=== PATIENT | male | born 1965 | race American Indian/Alaskan Native ===

== ENCOUNTER 2016-09-16 09:40 | Outpatient (CLI) | payer SELFPAY ==
--- NOTE | 2016-09-17 07:57 | Magnetic Resonance Report ---
MRI RIGHT SHOULDER WITHOUT CONTRAST: 09/16/16 CLINICAL: Right shoulder pain. TECHNIQUE: Coronal T1, coronal T2, coronal proton density fat saturation, sagittal proton density fat saturation and axial gradient echo T* sequences on a 1.5 Xochitl magnet. FINDINGS: A type II acromion and severe acromioclavicular joint arthritis with subchondral cysts, distal clavicular hypertrophy and a soft tissue mass at the joint. Widening of the joint space suggests a chronic acromioclavicular joint separation. Mild impingement of the supraspinatus tendon. The rotator cuff is otherwise intact. Intact glenoid labrum and long head of the biceps tendon. No joint effusion. IMPRESSION: Severe acromioclavicular joint arthritis producing mild impingement of the rotator cuff. No rotator cuff tear.
== END 2016-09-16 09:41 | disposition home or self-care (01) ==
LOC: MRI 09:40
PROVIDERS: ATTEND Physical Medicine & Rehabilitation
DX: M13.811 Other specified arthritis, right shoulder (principal); M25.811 Other specified joint disorders, right shoulder

== ENCOUNTER 2017-02-28 07:17 | Emergency (ER) | payer MEDICAID ==
[2017-02-28 09:08] LABS: Alanine Aminotransferase 18 units/L (7-56); Albumin 3.7 g/dL (3.9-5); Albumin/Globulin Ratio 0.9 %; Alkaline Phosphatase 116 units/L (35-129); Anion Gap 16 mmol/L; BUN/Creatinine Ratio 13.75; Blood Urea Nitrogen 11 mg/dL (9-20); Calcium 8.5 mg/dL (8.4-10.2); Carbon Dioxide 26 mmol/L (22-30); Chloride 95.1 mmol/L (98-107); Glucose 317 mg/dL (75-100); Potassium 4.3 mmol/L (3.6-5.0); Sodium 133 mmol/L (137-145); Total Protein 7.6 g/dL (6.3-8.2)
[2017-02-28 09:35] LABS: Basophils % (Auto) 0.7 % (0.0-1.8); Eosinophils % (Auto) 3.3 % (0.0-4.3); Hematocrit 41.5 % (35.5-45.6); Hemoglobin 13.7 gm/dl (11.8-15.2); Mean Corpuscular HGB Conc 33 % (32-34); Mean Corpuscular Hemoglobin 28 pg (28-32); Mean Corpuscular Volume 84 fl (84-94); Red Blood Count 4.93 M/mm3 (3.65-5.03); White Blood Count 7.5 K/mm3 (4.5-11.0)
--- NOTE | 2017-02-28 10:00 | Emergency Department Report ---
ED Headache HPI - General Chief Complaint: Headache Stated Complaint: HEADACHE LEFT SIDE OF HEAD Source: patient Exam Limitations: no limitations (3 days) - History of Present Illness Initial Comments: 51 y/o M with a pmhx of HTN, DM, chronic sinusitis presents with a left sided headache for the past 3 days. Pt admits to being noncompliant with his medications due to financial reasons. He states that it is not the worst headache he has had and states that he had this type of pain last time he had otitis externa. He reports to some dizziness, but denies any vision changes, LOC , or trauma to the site. He reports it to be a throbbing headache and an 8/10 in severity pain. Pt has been taking ibuprofen and tylenol with mild relief of the symptoms. Pt denies any nasal congestion, cough, fever, chills, chest pain, or new SOB at this time. Timing/Duration: other (3 days) Quality: severe, throbbing Head Injury Location: frontal, temporal Recent Head Trauma: no recent headache/trauma Modifying Factors: improves with: rest, other (ibuprofen and tylenol) Associated Symptoms: sinus infection (hx of chronic sinus issues). denies: confusion, fever/chills, nausea/vomiting, nasal congestion, nasal drainage, vision changes, weakness Allergies/Adverse Reactions: Allergies No Known Allergies Allergy (Unverified 06/14/16 13:07) Home Medications: Ambulatory Orders Aspirin [Aspirin BABY CHEW TAB] 81 mg PO QDAY #14 tab.chew 02/28/17 Cipro/Dexameth 0.3/0.1% [Ciprodex OTIC] 4 drops OT BID #1 bottle 02/28/17 Insulin Glargine [Lantus] 16 unit SUB-Q QHS #2 vial 02/28/17 Losartan [Cozaar] 50 mg PO QDAY #14 tablet 02/28/17 glipiZIDE [glipiZIDE XL] 10 mg PO BID #28 tab.er.24 02/28/17 metFORMIN [Glucophage] 500 mg PO BID #14 tablet 02/28/17 ED Review of Systems ROS: Stated complaint: HEADACHE LEFT SIDE OF HEAD Other details as noted in HPI Constitutional: denies: chills, fever Eyes: other (no blurried vision, but other mild chronic vision issues that comes and goes). denies: eye discharge, vision change ENT: ear pain, other (reports to left ear pain with radiation to the frontal, temporal, and occipital region). denies: throat pain Respiratory: other (no new SOB). denies: cough, shortness of breath, wheezing Cardiovascular: denies: chest pain, palpitations Gastrointestinal: denies: abdominal pain, nausea, diarrhea Genitourinary: denies: urgency, dysuria Musculoskeletal: denies: back pain, joint swelling, arthralgia Skin: denies: rash, lesions Neurological: headache (worse over the past 3 days). denies: weakness, numbness , paresthesias, abnormal gait Psychiatric: denies: anxiety, depression ED Past Medical Hx - Past Medical History Hx Hypertension: Yes Hx Diabetes: Yes - Surgical History Additional Surgical History: CARPAL TURNNEL BOTH HANDS. LYMPH NODE REMOVED LEFT GROIN - Social History Smoking Status: Former Smoker Substance Use Type: None - Medications Home Medications: Home Medications Medication Instructions Recorded Confirmed Last Taken Type Aspirin [Aspirin BABY CHEW TAB] 81 mg PO QDAY #14 tab.chew 02/28/17 Unknown Rx Cipro/Dexameth 0.3/0.1% [Ciprodex 4 drops OT BID #1 bottle 02/28/17 Unknown Rx OTIC] Insulin Glargine [Lantus] 16 unit SUB-Q QHS #2 vial 02/28/17 Unknown Rx Losartan [Cozaar] 50 mg PO QDAY #14 tablet 02/28/17 Unknown Rx glipiZIDE [glipiZIDE XL] 10 mg PO BID #28 tab.er.24 02/28/17 Unknown Rx metFORMIN [Glucophage] 500 mg PO BID #14 tablet 02/28/17 Unknown Rx ED Physical Exam - General Limitations: No Limitations General appearance: alert (alert and oriented x 3), in no apparent distress, other (pt was seen squinting at the light and massage the left temporal region on examination) - Head Head exam: Present: atraumatic, normocephalic, normal inspection, other (there was pain with tapping at the frontal region and pain at the temporal and occipital region) - Eye Eye exam: Present: normal appearance, PERRL, EOMI - ENT ENT exam: Present: other (left external canal injected) - Neck Neck exam: Present: normal inspection, full ROM. Absent: tenderness - Respiratory Respiratory exam: Present: normal lung sounds bilaterally. Absent: respiratory distress - Cardiovascular Cardiovascular Exam: Present: regular rate, normal rhythm. Absent: systolic murmur, diastolic murmur, rubs, gallop - Extremities Exam Extremities exam: Present: normal inspection (strength full in upper and lower extremities, senior cost analyst strength full) - Back Exam Back exam: Present: normal inspection - Neurological Exam Neurological exam: Present: alert, oriented X3, CN II-XII intact - Expanded Neurological Exam Expanded Patient oriented to: Present: person, place, time Speech: Present: fluid speech Cranial nerves: EOM's Intact: Normal, Facial Sensation: Normal Cerebellar function: Finger to Nose: Normal, Heel to [place]: Normal Motor strength exam: RUE: 5, LUE: 5, RLE: 5, LLE: 5 Best Eye Response ([place]): (4) open spontaneously Best Motor Response ([place]): (6) obeys commands Best Verbal Response ([place]): (5) oriented [place] Total: 15 - Psychiatric Psychiatric exam: Present: normal affect, normal mood - Skin Skin exam: Present: warm, dry, intact, normal color. Absent: rash ED Course Vital Signs 02/28/17 02/28/17 02/28/17 08:06 09:01 13:16 Temperature 98.0 F 97.7 F Pulse Rate 88 66 83 Respiratory 18 20 Rate Blood Pressure 150/93 Blood Pressure 144/94 143/102 [Right] O2 Sat by Pulse 96 98 Oximetry 02/28/17 14:03 Temperature 97.6 F Pulse Rate 85 Respiratory 18 Rate Blood Pressure Blood Pressure 138/88 [Right] O2 Sat by Pulse 97 Oximetry - Reevaluation(s) Reevaluation #1: 02/28/17 14:38 pt was reevaluated multiple times throughout his visit today, pt was given IV fluids, reglan, decadron, and benadryl. Pt reports to improvement of the pain. His blood sugar was rechecked at the end of the visit and had dropped to 207. 02/28/17 14:42 ED Medical Decision Making - Lab Data Result diagrams: 02/28/17 08:30 02/28/17 08:30 - Medical Decision Making Pt presented with a throbbing left sided headache, pt is a noncompliant diabetic and has HTN. CT without contrast was conducted on the patient and was unremarkble,due to the location of the pain at the left temporal region an ESR was ordered and was insignificant for GCA or temporal arteritis. We have treated patient for the headache with Iv fluids (which also helped bring his glucose down to 207 at discharge), decardron, benadryl, and reglan. Pt reports to improvement of his symptoms. Pt denied EKG at this time, risks were explained to the patient. AMA form was signed. At discharge, I refilled patient' s home medications and treated his otitis externa. Case was discussed with Dr. Hurt. Pt's vitals were stable at discharge, he was alert and oriented, and in no resp distress at this time. Critical care attestation.: If time is entered above; I have spent that time in minutes in the direct care of this critically ill patient, excluding procedure time. ED Disposition Clinical Impression: Headache Qualifiers: Headache type: unspecified Headache chronicity pattern: acute headache Intractability: not intractable Qualified Code(s): R51 - Headache Otitis externa Qualifiers: Otitis externa type: unspecified type Chronicity: acute Laterality: left Qualified Code(s): H60.502 - Unspecified acute noninfective otitis externa, left ear Disposition: DC-01 TO HOME OR SELFCARE Is pt being admited?: No Does the pt Need Aspirin: No Condition: Stable Instructions: Otitis Externa (ED), Acute Headache (ED) Additional Instructions: Please take medications as prescribed to you today. It is crucial that you follow-up with a PCP for further management of your symptoms and chronic diseases as if it stays uncontrolled it may cause: heart attacks, strokes, and other CVD. Please return to the ER with any acute worsening symptoms such as: chest pain, SOB, increased TYSON, or blurried vision. Prescriptions: Insulin Glargine [Lantus] 16 unit SUB-Q QHS #2 vial Aspirin [Aspirin BABY CHEW TAB] 81 mg PO QDAY #14 tab.chew Cipro/Dexameth 0.3/0.1% [Ciprodex OTIC] 4 drops OT BID #1 bottle glipiZIDE [glipiZIDE XL] 10 mg PO BID #28 tab.er.24 Losartan [Cozaar] 50 mg PO QDAY #14 tablet metFORMIN [Glucophage] 500 mg PO BID #14 tablet Referrals: PRIMARY CARE, [Primary Care Provider] - 3-[address] [facility] [place] [facility] [Outside] - 3-5 Days [facility] [Outside] - 3-5 Days Forms: Work/School Release Form(ED)
[2017-02-28 10:12] LABS: Bilirubin,Urine NEG (Negative); Blood,Urine NEG (Negative); Ketones,Urine NEG (Negative); Leukocyte Esterase,Urine NEG (Negative); Mucus,Urine FEW /HPF; Nitrite,Urine NEG (Negative); Protein,Urine <15 mg/dL mg/dL (Negative); RBC,Urine < 1.0 /HPF (0.0-6.0); Urobilinogen,Urine < 2.0 mg/dL (<2.0); WBC,Urine < 1.0 /HPF (0.0-6.0)
[2017-02-28 10:29] LABS: Platelet Count TNR K/mm3 (140-440)
--- NOTE | 2017-02-28 11:01 | Cat Scan Report ---
CT scan of head without IV contrast: History: Dizziness and headache. Findings: Ventricles are normal in size and midline in location. No evidence of acute ischemia, hemorrhage or mass. No extra-axial fluid collection. Normal brainstem and cerebellum. Normal sinuses and mastoid air cells. Impression: Essentially negative CT scan of head.
[2017-02-28] MEDS ORDERED: DECADRON IV ONE (11:09)
[2017-02-28] MEDS ORDERED: NACL 0.9% 1000 ML 1,000 ML IV ONE (11:09)
[2017-02-28] MEDS ORDERED: REGLAN IV ONE (11:10)
[2017-02-28] MEDS ORDERED: BENADRYL IV ONE (11:10)
[2017-02-28] MEDS ORDERED: REGLAN PO ONE (13:38)
[2017-02-28 14:06] VITALS: BP 138/88
== END 2017-02-28 14:51 | disposition home or self-care (01) ==
LOC: ED 07:17
DX: R51 Headache (principal); H60.502 Unspecified acute noninfective otitis externa, left ear; I10 Essential (primary) hypertension; E11.9 Type 2 diabetes mellitus without complications; Z87.891 Personal history of nicotine dependence
CPT/HCPCS: 36415; 70450; 80053; 81001; 82962; 85025; 85652; 96361; 96374; 96375; 99284; J1100; J1200; J7030

== ENCOUNTER 2017-06-14 09:36 | Emergency (ER) | payer OTHER ==
--- NOTE | 2017-06-14 11:12 | XRay Report ---
XRAY CHEST TWO VIEWS: 06/14/17 09:36:00 CLINICAL: Cough. COMPARISON: None FINDINGS: Normal heart.Bilateral hilar fullness and peribronchial cuffing. The lungs are normally expanded and clear.The bones and soft tissues are unremarkable. IMPRESSION: Mild central airway disease.No CHF or pneumonia.
[2017-06-14] MEDS ORDERED: XYLOCAINE 1% MPF 5 mL INFILTRATI ONE (11:40)
[2017-06-14] MEDS ORDERED: ROCEPHIN IM ONE (11:40)
[2017-06-14] MEDS ORDERED: DUONEB *Not for PRN Use IH ONE (11:40)
--- NOTE | 2017-06-14 11:50 | Emergency Department Report ---
Minor Respiratory - HPI Chief Complaint: Upper Respiratory Infection Stated Complaint: COUGH Time Seen by Provider: 06/14/17 10:24 Duration: 3 Days Pain Location: Facial, Chest Severity: moderate Minor Respiratory: Yes Sore Throat, Yes Able to Tolerate Fluids, Yes Ear Pain (r ), Yes Cough, No Rhinorrhea, No Sick Contacts, No Hemoptysis, No Chest Pain, No Shortness of Breath, No Fever ED Review of Systems ROS: Stated complaint: COUGH Other details as noted in HPI Comment: All other systems reviewed and negative Constitutional: no symptoms reported. denies: fever, malaise Eyes: denies: eye discharge, vision change ENT: ear pain, throat pain, other. denies: dental pain, epistaxis Respiratory: cough. denies: shortness of breath Cardiovascular: denies: chest pain Endocrine: denies: flushing Gastrointestinal: denies: abdominal pain, nausea, vomiting Genitourinary: denies: urgency, dysuria Musculoskeletal: denies: back pain Skin: denies: rash, lesions Neurological: denies: headache, weakness Psychiatric: denies: anxiety, depression Hematological/Lymphatic: denies: easy bleeding ED Past Medical Hx - Past Medical History Previous Medical History?: Yes Hx Hypertension: Yes Hx Diabetes: Yes - Surgical History Additional Surgical History: CARPAL TURNNEL BOTH HANDS. LYMPH NODE REMOVED LEFT GROIN - Social History Smoking Status: Former Smoker Substance Use Type: None - Medications Home Medications: Home Medications Medication Instructions Recorded Confirmed Last Taken Type Aspirin [Aspirin BABY CHEW TAB] 81 mg PO QDAY #14 tab.chew 02/28/17 Unknown Rx Insulin Glargine [Lantus] 16 unit SUB-Q QHS #2 vial 02/28/17 Unknown Rx Losartan [Cozaar] 50 mg PO QDAY #14 tablet 02/28/17 Unknown Rx glipiZIDE [glipiZIDE XL] 10 mg PO BID #28 tab.er.24 02/28/17 Unknown Rx metFORMIN [Glucophage] 500 mg PO BID #14 tablet 02/28/17 Unknown Rx ALBUTEROL Inhaler [ProAir HFA 2 puff IH QID PRN #1 inhalation 06/14/17 Unknown Rx Inhaler] Amoxicillin 500 mg PO BID #20 capsule 06/14/17 Unknown Rx predniSONE [Deltasone] 20 mg PO DAILY #5 tablet 06/14/17 Unknown Rx Minor Respiratory Exam - Exam General: Vital signs noted. No distress. Alert and acting appropriately. 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 Musculoskeletal: Unremarkable. 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 ED Disposition Clinical Impression: Upper respiratory infection, Sinusitis, Bronchitis, Diabetes, Nonadherence to medical treatment Disposition: DC-01 TO HOME OR SELFCARE Is pt being admited?: No Does the pt Need Aspirin: No Condition: Stable Instructions: Chronic Bronchitis (ED), Acute Bronchitis (ED), Diabetes Mellitus Type 2 in Adults (ED) Additional Instructions: rest fluids motrin or tylenol for pain or fever--OVER THE COUNTER Flonase- OVER THE COUNTER WILL HELP WITH SINUS CONGESTION DELSYM OVER THE COUNTER IS GOOD FOR COUGH; [place] AT NIGHT meds as ordered today take you home meds [facility] have free and 4$ lists [employer] diabetic diet follow up pcp see below for suggestions Referrals: PRIMARY CARE, [Primary Care Provider] - 3-5 Days MARIO ROGERS MD [Staff Physician] - 3-5 Days [facility] [Outside] - [facility] [[facility]] - 3-[address] [facility] [Outside] - 3-5 Days [facility] [Outside] - 3-5 Days [facility] [Outside] - 3-5 Days [facility] [Outside] - 3-5 Days [facility] [Outside] - 3-5 Days Time of Disposition: 12:02
[2017-06-14 12:41] VITALS: BP 120/66
== END 2017-06-14 12:57 | disposition home or self-care (01) ==
LOC: ED 09:36
DX: J32.9 Chronic sinusitis, unspecified (principal); J40 Bronchitis, not specified as acute or chronic; E11.9 Type 2 diabetes mellitus without complications; J06.9 Acute upper respiratory infection, unspecified; I10 Essential (primary) hypertension; Z87.891 Personal history of nicotine dependence; Z79.82 Long term (current) use of aspirin; Z79.4 Long term (current) use of insulin
CPT/HCPCS: 71020; 94640; 96372; 99283; J0696; J2930